=== PATIENT | female | born 1975 | race Caucasian/White ===

== ENCOUNTER 2018-08-11 13:50 | Emergency (ER) | payer SELFPAY ==
[~2018-08-11] VITALS: Ht 170.2 cm; Wt 70.3 kg
[2018-08-11 14:25] VITALS: BP_SYST 137
--- NOTE | 2018-08-11 14:28 | NUR ---
Patient to ER bed 07 to gown for evaluation. Side rails up. Report given to Monse.
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
--- NOTE | 2018-08-11 14:30 | NUR ---
ER at bedside examining patient.
--- NOTE | 2018-08-11 14:37 | NUR ---
SHAINA Carrero arrived to get report. report number #[id number].
--- NOTE | 2018-08-11 15:07 | NUR ---
Patient refusing IV access for CT exam, changed order to CT chest without contrast per MD Zamora.
[2018-08-11 15:23] LABS: BASOPHILS % (AUTO) 0.5 % (0.0-2.0); EOSINOPHILS % (AUTO) 0.4 % (0.0-4.0); HEMATOCRIT 34.3 % (36-48); HEMOGLOBIN 11.5 g/dL (12.0-16.0); LYMPHOCYTES % (AUTO) 15.8 % (20.5-51.5); MEAN CORPUSCULAR HEMOGLOBIN 26 pg (27-31); MEAN CORPUSCULAR HGB CONC 34 % (32-36); MEAN CORPUSCULAR VOLUME 77 fL (79.0-98.0); MONOCYTES # (AUTO) 0.5 K/uL (0.0-1.0); MONOCYTES % (AUTO) 7.8 % (1.7-9.3); NEUTROPHILS # (AUTO) 4.7 K/uL (1.8-7.7); NEUTROPHILS % (AUTO) 75.5 % (40.0-70.0); PLATELET COUNT (AUTO) 312 K/uL (130-430); RED BLOOD CELL COUNT(AUTO) 4.49 MIL/uL (4.2-6.2); RED CELL DISTRIBUTION WIDTH 15.2 % (9.0-15.0); WHITE BLOOD COUNT (AUTO) 6.2 K/uL (4.8-10.8)
[2018-08-11 15:34] LABS: CALCIUM 8.9 mg/dL (8.4-11.0); CREATININE 0.73 mg/dL (0.55-1.30); POTASSIUM 3.2 mmol/L (3.5-5.1)
[2018-08-11 15:39] LABS: ALBUMIN 3.7 g/dL (3.4-4.8); TOTAL BILIRUBIN 0.2 mg/dL (0.0-1.0)
[2018-08-11 15:56] LABS: PROTHROMBIN TIME 10.4 SECS (9.5-12.5)
[2018-08-11 16:04] LABS: BARBITURATE, URINE NEGATIVE (NEG <=200); BENZODIAZEPINE, URINE NEGATIVE (NEG <=150); CANNABINOID, URINE NEGATIVE (NEG <=50); COCAINE, URINE NEGATIVE (NEG <=150); METHAMPHETAMINES SCREEN,URINE NEGATIVE (NEG <=500); OPIATE, URINE NEGATIVE (NEG <=100); PHENCYCLIDINE SCREEN,URINE NEGATIVE (NEG <=25); UR TRICYCLIC ANTIDEPRESSANTS NEGATIVE (NEG <=300); URINE AMPHETAMINE NEGATIVE (NEG <=500); URINE METHADONE NEGATIVE (NEG <=200); URINE OXYCODONE SCREEN NEGATIVE (NEG <=100); URINE PROPOXYPHENE SCREEN NEGATIVE (NEG <=300)
--- NOTE | 2018-08-11 18:00 | NUR ---
patient sent to RD for Scans.
--- NOTE | 2018-08-11 19:15 | NUR ---
Pt is alert and oriented x4. Family at bedside. Pt C/O non-radiating chest wall pain and some back pain 03/02. Denies any other symptoms. VSS. No signs of SOB or acute distress noted. Skin warm and intact. Will continue to monitor.
[2018-08-11 20:04] LABS: BILIRUBIN,URINE NEGATIVE (NEGATIVE); CLARITY/URINE CLEAR (CLEAR); COLOR,URINE YELLOW (YELLOW); GLUCOSE,URINE NEGATIVE (NEGATIVE); KETONES,URINE NEGATIVE (NEGATIVE); LEUKOCYTE ESTERASE ,URINE NEGATIVE (NEGATIVE); NITRITE, URINE NEGATIVE (NEGATIVE); PH,URINE 7.5 (5.0-8.0); PROTEIN URINE NEGATIVE (NEGATIVE); UROBILINOGEN,URINE 0.2 (0.2-1.0)
[2018-08-11 20:05] LABS: BLOOD, URINE TRACE (NEGATIVE)
[2018-08-11 20:14] LABS: BACTERIA,URINE None Seen /HPF (None Seen); MUCUS,URINE None Seen /LPF (None Seen); RBC,URINE 0-3 /HPF (0-3); WBC,URINE 0-3 /HPF (0-3)
[2018-08-11] MEDS ORDERED: HYDROcodone/ACETAMIN 5-325 MG TAB (NORCO/ VICODIN) PO ONE (20:30)
[2018-08-11 20:33] LABS: BARBITURATE, URINE NEGATIVE (NEG <=200); BENZODIAZEPINE, URINE NEGATIVE (NEG <=150); CANNABINOID, URINE NEGATIVE (NEG <=50); COCAINE, URINE NEGATIVE (NEG <=150); METHAMPHETAMINES SCREEN,URINE NEGATIVE (NEG <=500); OPIATE, URINE NEGATIVE (NEG <=100); PHENCYCLIDINE SCREEN,URINE NEGATIVE (NEG <=25); UR TRICYCLIC ANTIDEPRESSANTS NEGATIVE (NEG <=300); URINE AMPHETAMINE NEGATIVE (NEG <=500); URINE METHADONE NEGATIVE (NEG <=200); URINE OXYCODONE SCREEN NEGATIVE (NEG <=100); URINE PROPOXYPHENE SCREEN NEGATIVE (NEG <=300)
--- NOTE | 2018-08-11 20:35 | NUR ---
Pt states she is having chest wall and back pain. Pain 03/02. Informed ER MD DENNISON, pain medication to be given per MD order. Will continue to monitor.
--- NOTE | 2018-08-11 21:40 | NUR ---
Pt resting in bed. VSS. No signs of SOB or acute distress noted. Pt states pain medication given has provided her with pain relief. Family at bedside. Will continue to monitor.
[2018-08-11 22:45] VITALS: BP_SYST 122
--- NOTE | 2018-08-11 22:45 | NUR ---
Patient given written and verbal discharge instructions and verbalizes understanding. ER MD discussed with patient the results and treatment provided. Patient in stable condition. ID arm band removed. Rx of [place] given. Patient educated on pain management and to follow up with PMD. Pain Scale 0. Opportunity for questions provided and answered. Medication side effect fact sheet provided.
== END 2018-08-11 22:45 | disposition home or self-care (01) ==
LOC: SED 13:50
DX: S22.20XA Unspecified fracture of sternum, initial encounter for closed fracture (principal); R03.0 Elevated blood-pressure reading, without diagnosis of hypertension; V43.52XA Car driver injured in collision with other type car in traffic accident, initial encounter; Y93.89 Activity, other specified; Y92.410 Unspecified street and highway as the place of occurrence of the external cause; Y99.8 Other external cause status
CPT/HCPCS: 36415; 70450-TC; 71250-TC; 72125-TC; 80053; 80307; 81000-TC; 81025; 84702-TC; 85025; 85610-TC; 99284

== ENCOUNTER 2019-10-01 09:56 | Emergency (ER) | payer MEDICAID ==
[~2019-10-01] VITALS: Ht 165.1 cm; Wt 71.7 kg
[2019-10-01 10:01] VITALS: BP_SYST 117
--- NOTE | 2019-10-01 10:06 | NUR ---
Patient to ER bed 2 to gown for evaluation. Side rails up. Report given to AARON ROGERS.
--- NOTE | 2019-10-01 10:17 | NUR ---
ER at bedside examining patient.
[2019-10-01] MEDS ORDERED: DEXAMETHASONE SOD PHOSPHATE 4 MG/ML VIAL IM ONE (10:30)
[2019-10-01] MEDS ORDERED: cefTRIAXone 1 GM in LIDOCAINE 1%, 20 ML MDV 2.1 ML IM ONE (10:30)
[2019-10-01 10:42] VITALS: BP_SYST 117
--- NOTE | 2019-10-01 10:44 | NUR ---
Patient given written and verbal discharge instructions and verbalizes understanding. ER MD discussed with patient the results and treatment provided. Patient in stable condition. ID arm band removed. Rx of AUGMENTIN,MOTRIN given. Patient educated on pain management and to follow up with PMD. Pain Scale . Opportunity for questions provided and answered. Medication side effect fact sheet provided.
== END 2019-10-01 10:42 | disposition home or self-care (01) ==
LOC: SED 09:56
DX: J03.90 Acute tonsillitis, unspecified (principal)
CPT/HCPCS: 96372; 99283; J0696; J1100; J2001